=== PATIENT | female | born 1985 | race Caucasian/White ===

== ENCOUNTER → 2016-09-22 | Outpatient (CLI) | payer BC, OTHER ==
--- NOTE | 2016-09-22 12:06 | DI ---
US OB LESS THAN 14 WEEKS, US OB TRANSVAGINAL,09/22/2016 9:57 AM: Clinical History: Established gestational age. Previous Exam: None at this facility. Findings: Multiple transabdominal and endovaginal grayscale and color Doppler sonographic images are obtained t hrough the pelvis. The left ovary is within normal limits. The right ovary was not seen. There is a gestational sac noted containing a yolk sac and a small pole. The pole measures 8 mm corresponding with an estimated gestational age of 6 weeks 6 days. A yolk sac is also noted measuring 6 mm. This would correspond with an estimated gestational age of 9 weeks one day. The placenta is grossly normal. There is no evidence of hemorrhage. There is no free fluid. There were no detectable Doppler heart tones within the pole. Impression: 1. Single intrauterine gestation with a pole measuring 8 mm corresponding with an estimated ges tational age of 6 weeks 6 days. This is not concordant with patient's last menstrual period, and ther e is no detectable Doppler heart tones. This could be secondary to a very early gestation with non-de tectable heart tones, or an early demise, especially given the non-concordant dates. Recommend correlation with serial hCGs and imaging as appropriate.
[2016-09-22 12:49] LABS: BASOPHILS # (AUTO) 0.02 10*3/UL; BASOPHILS % (AUTO) 0.3 % (0-1); EOSINOPHILS # (AUTO) 0.14 10*3/UL; EOSINOPHILS % (AUTO) 2.3 % (0-8); HEMATOCRIT 37.5 % (37.0-47.0); HEMOGLOBIN 13.2 g/dL (12.0-16.0); LYMPHOCYTES # (AUTO) 1.27 10*3/uL; MEAN CORPUSCULAR HEMOGLOBIN 30.1 PG (27-31); MEAN CORPUSCULAR HGB CONC 35.2 g/dL (33-37); MEAN CORPUSCULAR VOLUME 85.4 FL (81-99); MEAN PLATELET VOLUME 9.6 FL (7.4-12.2); MONOCYTES % (AUTO) 8.4 % (5-15); NEUTROPHILS # (AUTO) 3.99 10*3/UL; RED BLOOD COUNT 4.39 10^6/uL (4.20-5.40)
[2016-09-22 13:09] LABS: PLATELET MORPHOLOGY COMMENT NORMAL MORPHOLOGY (NORM); RBC MORPHOLOGY COMMENT NORMAL MORPHOLOGY (NORM); WBC MORPHOLOGY COMMENT NORMAL MORPHOLOGY (NORM)
[2016-09-22 15:50] LABS: HIV ANTIBODY NEGATIVE (N); HIV-1 P24 ANTIGEN NEGATIVE (N)
[2016-09-23 11:40] LABS: HEP B SURFACE AG Negative (Negative)
== END ==
LOC: MOB LAB 08:59
PROVIDERS: ATTEND Family Medicine
DX: N91.2 Amenorrhea, unspecified (principal); Z36 Encounter for antenatal screening of mother
CPT/HCPCS: 36415; 76801; 76817; 80081; 84702; 86900; 86901; 87088

== ENCOUNTER → 2016-09-29 | Outpatient (CLI) | payer BC ==
--- NOTE | 2016-09-29 11:31 | DI ---
OBSTETRICAL ULTRASOUND, 09/29/2016 10:38 AM: Clinical History: Verify viability. Abnormal early OB ultrasound performed last week demonstrated a f etal pole without evidence of cardiac activity as well as visualization of the yolk sac. Previous Exam: 09/22/2016. LMP: 07/21/2016. Transabdominal and transvaginal scans demonstrate an intrauterine gestational sac without evidence of parts or of the yolk sac. I was present at the time of the scans. This would indicate de mise. The ovaries were imaged on the prior exam and were normal. They were not imaged at this study. Reading: Intrauterine gestational sac without evidence of parts or the yolk sac.
== END ==
LOC: US 10:35
PROVIDERS: ATTEND Family Medicine
DX: O36.80X0 Pregnancy with inconclusive fetal viability, not applicable or unspecified (principal)
CPT/HCPCS: 76815; 76817

== ENCOUNTER 2016-10-01 06:42 | Day surgery (SDC) | payer BC ==
[~2016-10-01 06:42] MED LIST: LIDOCAINE W/ SODIUM BICARB 0.5 ML SYR ONE; Lactated Ringers 1,000 ML PRIMARY IV ONE
[2016-10-01 07:02] VITALS: RESP 17
[2016-10-01] MEDS ORDERED: fentaNYL Inj 250 MCG/5 ML VIAL ONE (07:08)
[2016-10-01] MEDS ORDERED: MIDAZOLAM 5 MG/1 ML ONE (07:08)
[2016-10-01] MEDS ORDERED: LIDOCAINE MPF 2% - 5 ML (20 MG/1 ML) ONE (07:09)
[2016-10-01] MEDS ORDERED: Lactated Ringers 1,000 ML PRIMARY IV ONE (07:48)
[2016-10-01 07:52] LABS: BILIRUBIN,URINE NEGATIVE (NEG); COLOR,URINE YELLOW; GLUCOSE, URINE (UA) NEGATIVE (NEG); NITRATE,URINE NEGATIVE (NEG); OCCULT BLOOD,URINE NEGATIVE (NEG); PROTEIN,URINE NEGATIVE (NEG); UROBILINOGEN,URINE 0.2 EU/dL (0.2)
[2016-10-01 07:53] LABS: CLARITY,URINE CLEAR (CLEAR); URINE SAMPLE TYPE CLEAN CATCH URINE
[2016-10-01] MEDS ORDERED: ONDANSETRON 4 MG/2 ML VIAL ONE (08:10)
[2016-10-01] MEDS ORDERED: KETOROLAC 30 MG/1 ML VIAL ONE (08:10)
[2016-10-01] MEDS ORDERED: METHYLERGONOVINE MALEATE 0.2 MG/1 ML VIAL IM ONE (08:17)
[2016-10-01] MEDS ORDERED: NORMAL SALINE 10 ML SYRINGE FLUSH IVP PRN (08:26)
[2016-10-01] MEDS ORDERED: IBUPROFEN 800 MG TABLET PO PRN (08:26)
[2016-10-01] MEDS ORDERED: Methylergonovine Tab 0.2 MG TAB PO SCH (08:30)
[2016-10-01] MEDS ORDERED: Sodium Chloride 0.9% 1,000 ML PRIMARY IV SCH (08:30)
--- NOTE | 2016-10-01 08:32 | OB.OP.NOTE ---
Operative Report Surgeon: Norah Anesthesia Type: General Anesthesia Provider: Pj Villalobos CRNA Surgery Date: 10/01/16 Preoperative Diagnosis: Missed AB Postoperative Diagnosis: Same Procedure: Suction D&C Estimated Blood Loss (mL): 150 Fluids: 1500 ml Complications: None Findings at Surgery: 12 cm RV uterus. POC. Indications for the Procedure: Anembryonic Gestation. Description of Procedure: The patient was taken to the OR and placed supine where general LMA was administered. She was placed in lithotomy position in [facility]. EUA was unremarkable. She was prepped and draped in the normal sterile fashion. A weighted speculum was placed. The anterior lip of the cervix was grasped with a single-tooth tenaculum. Uterus was sounded to a depth of 12 cm. The cervix was then dilated with Meek dilators to #30. A 9 mm curved suction curette was then introduced to the uterine fundus and a vacuum tube was applied. Vacuum was turned on and several passages of suction curettage were made with return of copious products of conception. When no further products were returned Sharp curettage was performed with good cry noted in all 4 quadrants. 2 final passes of suction curettage were made with no additional products and minimal blood. The tenaculum was then removed the cervix and hemostasis was obtained with direct pressure with a sponge stick. Bimanual massage resulted in good hemostasis from the in vitro cavity. A single dose of Methergine was given. There were no complications at surgery the patient left to recovery in good condition. Plan: Routine postop care and discharge to home.
[2016-10-01 09:15] VITALS: TEMP 96.8
== END 2016-10-01 09:10 | disposition home or self-care (01) ==
LOC: SDSC 06:42
PROVIDERS: ATTEND Obstetrics & Gynecology
DX: O02.1 Missed abortion (principal)
CPT/HCPCS: 59820; 81003; J1885; J2704; J3010; J2001; J2210; J2250; J2405; J7120

== ENCOUNTER 2017-10-28 09:35 | Inpatient (IN) ==
--- NOTE | 2017-10-28 10:53 | DI ---
US OB , Limited,10/28/2017 9:39 AM: Clinical History: Doppler flow study. Previous Exam: October 26, 2017 Findings: Multiple transabdominal grayscale and color Doppler sonographic images are obtained through the pelvi s, and demonstrate a single live intrauterine gestation. Detected Doppler heart tones measure 150 beats per minute. Amniotic fluid index measures 7.5 cm. This is essentially unchanged from the prior exam. Umbilical cord Dopplers were performed revealing an SD ratio of between 2.2 and 2.4. Impression: 1. Essentially stable amniotic fluid index at the low end of normal. 2. SD ratios between 2.2 and 2.4.
[2017-10-28] MEDS ORDERED: Nalbuphine Inj 20 MG/ML Ampule IVP PRN (12:20)
[2017-10-28] MEDS ORDERED: Carboprost Inj 250 MCG/ML AMP IM PRN (12:20)
[2017-10-28] MEDS ORDERED: Zolpidem Tab 5 MG TAB PO PRN (12:20)
[2017-10-28] MEDS ORDERED: Phenylephrine Inj 50 MCG in Normal Saline Flush 0.5 ML IVP PRN (12:20)
[2017-10-28] MEDS ORDERED: LIDOCAINE W/ SODIUM BICARB 0.5 ML SYR SUBD PRN (12:20)
[2017-10-28] MEDS ORDERED: CefOXitin Inj 2 GM in Sodium Chloride 0.9% 100 ML IV PRN (12:20)
[2017-10-28] MEDS ORDERED: CITRIC ACID/SODIUM CITRATE 30 ML CUP PO PRN (12:20)
[2017-10-28] MEDS ORDERED: Metoclopramide Inj 10 MG/2 ML VIAL IV PRN (12:20)
[2017-10-28] MEDS ORDERED: TERBUTALINE SULFATE 1 MG/1 ML SDV SUBCUT PRN (12:20)
[2017-10-28] MEDS ORDERED: Naloxone Inj 0.01 MG in Normal Saline Flush 1 ML IVP PRN (12:20)
[2017-10-28] MEDS ORDERED: LIDOCAINE HCL 2 % 10 ML JELLY URO-JECT TOPICAL PRN (12:20)
[2017-10-28] MEDS ORDERED: ePHEDrine Inj 5 MG in Normal Saline Flush 1 ML IVP PRN (12:20)
[2017-10-28] MEDS ORDERED: METHYLERGONOVINE MALEATE 0.2 MG/1 ML VIAL IM PRN (12:20)
[2017-10-28] MEDS ORDERED: diphenhydrAMINE 50 MG/1 ML VIAL IVP PRN (12:20)
[2017-10-28] MEDS ORDERED: MISOPROSTOL 200 MCG TABLET RECTAL PRN (12:20)
[2017-10-28] MEDS ORDERED: CALCIUM CARBONATE 500 MG (TUMS) CHEWABLE TABLET PO PRN (12:20)
[2017-10-28] MEDS ORDERED: BUTORPHANOL TARTRATE 2 MG/1 ML VIAL IVP PRN (12:20)
[2017-10-28] MEDS ORDERED: Lidocaine 1% 10 MG/ML - 20 ML VIAL SUBCUT PRN (12:20)
[2017-10-28] MEDS ORDERED: ONDANSETRON 4 MG/2 ML VIAL IVP PRN (12:20)
[2017-10-28] MEDS ORDERED: FAMOTIDINE 20 MG/2 ML VIAL IVP PRN ×2 (12:20)
[2017-10-28] MEDS ORDERED: OXYTOCIN 10 UNIT/1 ML IM PRN (12:20)
[2017-10-28] MEDS ORDERED: NALOXONE 0.4 MG/1 ML VIAL IVP PRN (12:20)
[2017-10-28] MEDS ORDERED: Oxytocin 20 Units + LR 20 UNIT/1,000 ML BAG IV SCH (12:30)
[2017-10-28] MEDS ORDERED: Misoprostol Tab 100 MCG TAB VAGINAL SCH (12:30)
[2017-10-28] MEDS ORDERED: Misoprostol Tab 100 MCG TAB VAGINAL ONE (12:36)
[2017-10-28 13:08] LABS: Hemoglobin [HGB] 11.5 g/dL (12.0-16.0); MEAN CORPUSCULAR HGB CONC 35.9 g/dL (33-37); MEAN CORPUSCULAR VOLUME 89.1 FL (81-99); MEAN PLATELET VOLUME 9.4 FL (7.4-12.2); RED BLOOD COUNT 3.59 10^6/uL (4.20-5.40)
[2017-10-28] MEDS: Lactated Ringers-OB Dept 1,000 ML PRIMARY IV SCH ×2 (14:29→18:30)
[2017-10-28] MEDS: fentaNYL Inj 100 MCG/2 ML VIAL IV PRN (18:26)
[2017-10-28] MEDS ORDERED: Fent/Bupiv 2mcg/0.0625% Epid 250 ML ONE (18:37)
--- NOTE | 2017-10-28 18:47 | CRNA.PROCE ---
Central Neuraxis Block Placemt - - Safety Measures: Time Out Taken, Site Verified - - Type of Block: Epidural Reason for Block: Analgesia Moniters Used During Block: SPO2, NIBP Positioning: Sitting Skin Prep Used: Betadine Introducer User: 18 Gauge Chace Local Anesthetic - Enter Amount Used in Comment Field: 5.0 % Xylocaine with Dextrose (ml): Yes (5mg iv) Number of Centimeters Catheter Threaded: 4 Bioclusive Dressing Applied: Yes - - Additional Details: Easy first pass EMILEE to saline at L4-5 after standard prep and drape. Cath easily 4cm Secured, test dose neg. Cath secured. Anesthesia Time - Other Weight: 79.379 kg Height: 5 ft 3 in Body Mass Index (BMI): 30.9
--- NOTE | 2017-10-28 18:49 | CRNA.PROGR ---
Anesthesia Time - - Start date: 10/28/17 - Procedure/Recovery Time Anesthesia : Time In: 18:20 - Other Weight: 79.379 kg Height: 5 ft 3 in Body Mass Index (BMI): 30.9 Physical Status: P2 Anesthesia Type: Epidural
[2017-10-28] MEDS ORDERED: ePHEDrine Inj 50 MG/ML AMP ONE (19:07)
[2017-10-29] MEDS: Lactated Ringers-OB Dept 1,000 ML PRIMARY IV SCH ×3 (01:39→15:15)
--- NOTE | 2017-10-29 05:53 | OB.PROGRES ---
Date and Time of Service: 10/29/17 @ 0546 Interval History: Vi is a 31 yo at 41 2/7 weeks by early first trimester u/s who was admitted to labor and delivery yesterday around noon for induction secondary to post-dates. Baby's growth was also noted to have fallen off the growth curve on her u/s 2 days prior. Her CELESTINO was 7.5 yesterday. She received 1 dose of cytotec after admission and went into labor shortly thereafter. She did receive 1 dose of terbutaline for tocosystole of her uterus as she was bret every minute. She had an epidural placed for analgesia at 1830. She labored on her own and was complete and 0 to +1 station at 0150. She began pushing around 0225. She is very comfortable with her epidural, only feeling pressure when she has a contraction. Objective - Cervical Exam Cervical Exam: 10/100/+1 to +2. Caput present. Baby's head feels to be in the OA presentation. Towner: every 2-7 minutes, palpating hard. Heart Rate: 150s baseline, variables noted with some contractions, down to the 80s. Moderate variability. Heart Rate Interpretation Category: Category II - Labs CBC and BMP: 10/28/17 13:00 - Vital Signs Last Taken Vital Signs: Vital Signs - Last Taken Temperature 98.3 F 10/28/17 21:45 Pulse Rate 92 10/29/17 00:00 Respiratory Rate 16 10/28/17 22:45 Blood Pressure 116/77 10/29/17 01:30 Pulse Ox 100 10/29/17 03:00 Assessment and Plan - Patient Problems (1) Post-dates Current Visit: No Status: Acute Code(s): O48.0 - Post-term Qualifiers: Post-term type: 40-42 weeks gestation Qualified Code(s): O48.0 - Post-term - Assessment / Plan Additional Assessment/Plan Details: -pt pushing well with contractions, but baby is not descending any further. -GBS negative. -spoke with Dr. Almazan regarding possible operative vaginal delivery with forceps given her adequate pelvis, excellent pushing effort and normal sized baby. He agreed to come and evaluate the pt. -close observation.
[2017-10-29] MEDS: fentaNYL Inj 100 MCG/2 ML VIAL IV PRN (06:30)
[2017-10-29] MEDS ORDERED: LIDOCAINE MPF 2% - 5 ML (20 MG/1 ML) ONE (06:33)
--- NOTE | 2017-10-29 06:57 | OB.DEL.SUM ---
Delivery Note Delivery Summary: I was called by Dr. Luz to evaluate this patient for possible operative vaginal delivery after she had pushed for over 3 hours without delivery. The baby was felt to be in OA position and EFW was 7 lbs. +2 station. FHRT demonstrated normal BL with accels and variable decels with pushing efforts. The patient is a G2 now P1 at 41 weeks EGA. I examined the patient and agreed with her position and station. Dr. Luz and I discussed operative vaginal delivery with forceps vs. delivery with the patient and her . The patient agreed to low forceps delivery. Between contractions, LS forceps were applied easily to the head. With the next contraction, gentle traction was applied in a slightly downward trajectory to clear the pubic arch. The head moved well. When the arch was cleared, traction was changed to upward, resulting in delivery of the head over one push. The forceps were removed and the remainder of the infant delivered easily. The cord was clamped and cut and the was taken to the warmer. Terminal meconium was noted. Cord gases and cord blood were obtained. Apgars 8/9. Cord pH 7.3. Weight 7 lbs 12 oz. The placenta was very adherent, and brisk uterine bleeding was noted which precluded waiting for the second stage. Therefore, manual extraction of the placenta was accomplished with removal of the placenta in multiple fragments. Atony with PPH was treated with pitocin, methergine, and bimanual massage. Inspection of the perineum revealed a second degree vaginal/ perineal laceration which was repaired with 3-0 Vicryl Rapide suture in the usual manner after the epidural as dosed. EBL 1500. There were no additional complications other than hemorrhage resulting from uterine atony and densely adherent placenta.
[2017-10-29] MEDS ORDERED: HYDROcodone-APAP 5 MG -325 MG TABLET PO PRN (07:06)
[2017-10-29] MEDS ORDERED: Nalbuphine Inj 20 MG/ML Ampule IVP PRN (07:06)
[2017-10-29] MEDS ORDERED: ACETAMINOPHEN 325 MG TABLET PO PRN (07:06)
[2017-10-29] MEDS ORDERED: BENZOCAINE/MENTHOL SPRAY 56 GM BOTTLE TOPICAL PRN (07:06)
[2017-10-29] MEDS ORDERED: GLYCERIN/WITCH HAZEL 1 BOX TOPICAL PRN (07:06)
[2017-10-29] MEDS ORDERED: CALCIUM CARBONATE 500 MG (TUMS) CHEWABLE TABLET PO PRN (07:06)
[2017-10-29] MEDS ORDERED: LANOLIN HPA 40 GM TUBE TOPICAL PRN (07:06)
[2017-10-29] MEDS ORDERED: DIPH,PERTUSS,TET(ADACEL) VAC/PF 0.5 ML (Tdap) IM ONE (07:06)
[2017-10-29] MEDS ORDERED: LIDOCAINE HCL 2 % 10 ML JELLY URO-JECT TOPICAL PRN (07:06)
[2017-10-29] MEDS ORDERED: ONDANSETRON 4 MG/2 ML VIAL IVP PRN (07:06)
[2017-10-29] MEDS ORDERED: diphenhydrAMINE 25 MG CAPSULE PO PRN (07:06)
[2017-10-29] MEDS ORDERED: Oxytocin 20 Units + LR 20 UNIT/1,000 ML BAG IV SCH (07:06)
[2017-10-29] MEDS ORDERED: diphenhydrAMINE 50 MG/1 ML VIAL IVP PRN (07:06)
[2017-10-29] MEDS ORDERED: Ondansetron ODT Tab 4 MG TAB PO PRN (07:06)
[2017-10-29] MEDS: Ertapenem Inj 1 GM in Sodium Chloride 0.9% 100 ML IV SCH (07:35)
[2017-10-29] MEDS: Methylergonovine Tab 0.2 MG TAB PO SCH ×3 (07:35→22:03)
[2017-10-29] MEDS: DOCUSATE 100 MG CAPSULE PO SCH ×2 (09:06→22:03)
[2017-10-29] MEDS: Lactated Ringers 1,000 ML PRIMARY IV SCH ×2 (11:43→20:16)
[2017-10-29] MEDS: IBUPROFEN 800 MG TABLET PO PRN ×2 (13:30→22:28)
[2017-10-29 13:46] VITALS: RESP 16
[2017-10-29 14:38] LABS: Hematocrit [HCT] 27.5 % (37.0-47.0); Hemoglobin [HGB] 9.4 g/dL (12.0-16.0)
[2017-10-29] MEDS: Misoprostol Tab 100 MCG TAB VAGINAL SCH ×3 (15:15→15:17)
[2017-10-29] MEDS: FERROUS GLUCONATE 324 MG TABLET PO SCH (16:22)
[2017-10-30] MEDS: FERROUS GLUCONATE 324 MG TABLET PO SCH ×2 (04:34→09:55)
[2017-10-30] MEDS: Methylergonovine Tab 0.2 MG TAB PO SCH ×3 (04:34→09:55)
[2017-10-30] MEDS: Lactated Ringers 1,000 ML PRIMARY IV SCH (04:35)
[2017-10-30 06:34] LABS: Hematocrit [HCT] 23.6 % (37.0-47.0); MEAN CORPUSCULAR HGB CONC 34.1 g/dL (33-37); MEAN CORPUSCULAR VOLUME 94 FL (81-99); MEAN PLATELET VOLUME 7.8 FL (7.4-12.2); RED BLOOD COUNT 2.51 10^6/uL (4.20-5.40)
[2017-10-30] MEDS: Ertapenem Inj 1 GM in Sodium Chloride 0.9% 100 ML IV SCH (07:41)
[2017-10-30] MEDS: IBUPROFEN 800 MG TABLET PO PRN (07:46)
[2017-10-30] MEDS ORDERED: Prenatal Multivitamin Tab 1 TAB TAB PO SCH (09:00)
[2017-10-30] MEDS: DOCUSATE 100 MG CAPSULE PO SCH (09:55)
--- NOTE | 2017-10-30 11:21 | OB.PROGRES ---
Subjective Post Op Day: 1 Pain Management: PO Vinson Catheter: No Flatus: Yes Diet: Regular Feeding Method: Exculsively Ambulating: Yes Concerns / Additional Information: Moderate lochia. States that her hips and inner thighs are sore, but otherwise feeling well. Breast feeding is coming along. Objective - General General Appearance: POSITIVE: No Acute Distress, Cooperative - Cardiovacular Cardiovascular Exam: POSITIVE: RRR, No Murmur Edema: +2 Pedal Edema Extremities: Negative Iraida's - Bilaterally - Respiratory Respiratory Exam: POSITIVE: Clear to Auscultation - Bilaterally, Breathing Non Labored - Abdomen Bowel Sounds: Present - Fundus/Lochia/Perineum Uterus Consistency: Firm Uterus Position: POSITIVE: At Umbilicus Assesstment / Plan (1) Post-dates Current Visit: No Status: Acute Qualifiers: Post-term type: 40-42 weeks gestation Qualified Code(s): O48.0 - Post-term Assessment / Plan: -doing well s/p forceps delivery yesterday. -requesting to go home. -rh positive. -rubella immune. -breast feeding; Public Health referral made. -f/u: 6 week PP check.
[2017-11-02 14:33] VITALS: BP 106/72; O2SAT 97
[2017-11-02 14:38] VITALS: TEMP 98
== END 2017-10-30 13:21 | disposition home or self-care (01) | DRG 775 ==
LOC: US 09:35 → OBIP 12:21
PROVIDERS: ADMIT Family Medicine; ATTEND Family Medicine